=== PATIENT | male | born 1940 | race Hispanic/Latino ===

== ENCOUNTER 2021-08-31 10:20 | Day surgery (SDC) | payer OTHER ==
[2021-08-31] VITALS (19 sets, daily range): BP systolic 123–156; BP diastolic 74–95
[2021-08-31] MEDS ORDERED: LACTATED RINGERS 1000ML 1,000 ML IV ONE (11:08)
[2021-08-31 11:30] LABS: HEMATOCRIT 40.4 % (42-54); MEAN CORPUSCULAR HEMOGLOBIN 30.9 pg (27.0-33.0); MEAN CORPUSCULAR HGB CONC 31.9 g/dL (32.0-36.0); MEAN CORPUSCULAR VOLUME 96.9 fL (79-99); RED BLOOD CELL COUNT(AUTO) 4.17 MIL/uL (4.50-6.20); RED CELL DISTRIBUTION WIDTH 14.5 % (11.0-15.5); WHITE BLOOD COUNT (AUTO) 5.9 K/uL (4.8-10.8)
[2021-08-31 11:44] LABS: APPEARANCE,URINE Clear (CLEAR); BILIRUBIN,URINE Negative (NEGATIVE); COLOR,URINE Yellow (YELLOW); GLUCOSE, URINE (UA) Negative (NEGATIVE); KETONES,URINE Negative (NEGATIVE); LEUKOCYTE ESTERASE ,URINE Negative (NEGATIVE); NITRATE,URINE Negative (NEGATIVE); OCCULT BLOOD,URINE Negative (NEGATIVE); PH,URINE 5.5 (5.0-8.0); PROTEIN,URINE Negative (NEGATIVE)
[2021-08-31 11:49] LABS: INR 1.16 (0.85-1.15); PROTHROMBIN TIME 12.5 SEC (9.6-11.6)
[2021-08-31 11:50] LABS: PARTIAL THROMBOPLASTIN TIME 28.5 SEC (26.3-35.5)
[2021-08-31] MEDS ORDERED: ONDANSETRON 4MG INJ ONE (12:02)
[2021-08-31] MEDS ORDERED: MIDAZOLAM HCL 1 MG/ML 2ML VIAL ONE (12:02)
[2021-08-31] MEDS ORDERED: LIDOCAINE PF 100MG/5ML (2%) SYRINGE 5ML ONE (12:02)
[2021-08-31] MEDS ORDERED: ROCURONIUM 10MG/1ML SYR 10 MG/ML ML ONE (12:03)
[2021-08-31] MEDS ORDERED: FENTANYL CITRATE PF 50 MCG/1 ML 2ML VIAL ONE ×2 (12:03→14:28)
[2021-08-31] MEDS ORDERED: PROPOFOL 10 MG/ML 20ML VIAL IV ONE (12:03)
[2021-08-31] MEDS: CEFAZOLIN SODIUM 1 GM VIAL ONE ×2 (12:12→13:37)
[2021-08-31] MEDS ORDERED: DOXA2TAB PO (12:28)
[2021-08-31] MEDS ORDERED: PANT40TA54 PO (12:28)
[2021-08-31] MEDS ORDERED: METO-408 PO (12:28)
[2021-08-31] MEDS ORDERED: FURO-152 PO (12:28)
[2021-08-31] MEDS ORDERED: ATOR40TA69 PO (12:28)
[2021-08-31] MEDS ORDERED: AEC81 PO (12:28)
[2021-08-31] MEDS ORDERED: ACET325T51 PO (12:28)
[2021-08-31] MEDS ORDERED: FERR1TAB22 PO (12:28)
[2021-08-31] MEDS ORDERED: DIGO125T71 PO (12:28)
[2021-08-31] MEDS ORDERED: APIX5TAB PO (12:28)
[2021-08-31] MEDS ORDERED: TRAZ-185 PO (12:28)
[2021-08-31] MEDS ORDERED: POTA-202 PO (12:28)
[2021-08-31] MEDS ORDERED: GLYCOPYRROLATE 1 MG/5 ML SYRINGE ONE (14:26)
[2021-08-31] MEDS ORDERED: NEOSTIGMINE 5MG/5ML SYR IV ONE (14:26)
[2021-08-31] MEDS ORDERED: ACETAMINOPHEN WITH CODEINE 1 TAB TAB ONE (16:03)
[2021-08-31] MEDS ORDERED: 0.9%NACL 1000ML 1,000 ML IV SCH (18:30)
[2021-08-31] MEDS ORDERED: ACETAMINOPHEN WITH CODEINE 1 TAB TAB PO PRN (18:30)
== END 2021-08-31 16:40 | disposition home or self-care (01) ==
LOC: DAH 10:20
PROVIDERS: ATTEND Urology
DX: N35.919 Unspecified urethral stricture, male, unspecified site (principal); Z20.822 Contact with and (suspected) exposure to COVID-19; N32.0 Bladder-neck obstruction; N32.89 Other specified disorders of bladder; N40.1 Benign prostatic hyperplasia with lower urinary tract symptoms; R39.12 Poor urinary stream; I10 Essential (primary) hypertension; K21.9 Gastro-esophageal reflux disease without esophagitis; I25.10 Atherosclerotic heart disease of native coronary artery without angina pectoris; I48.91 Unspecified atrial fibrillation; Z95.0 Presence of cardiac pacemaker; Z95.1 Presence of aortocoronary bypass graft; Z98.890 Other specified postprocedural states; Z79.899 Other long term (current) drug therapy; Z79.82 Long term (current) use of aspirin; Z91.040 Latex allergy status; Z90.49 Acquired absence of other specified parts of digestive tract; Z85.46 Personal history of malignant neoplasm of prostate; Z92.3 Personal history of irradiation; Z79.01 Long term (current) use of anticoagulants
CPT/HCPCS: 36415; 52281; 81003; 85027; 85610; 85730; 87088; A4215; A4221; A4222; A4223; A4344; A4354; A4358; A4600; A4606; A4663; A4930 ×2; A5113; C1726; C1758 ×2; C1769 ×2; J0690; J2001; J2250; J2405; J2704; J2710; J3010 ×2; J3490; J7120; Q9958